=== PATIENT | female | born 1985 | race Caucasian/White ===

== ENCOUNTER → 2017-07-17 | Outpatient (CLI) | payer BC ==
[~2017-07-17] VITALS: Ht 178.3 cm; Wt 101.8 kg
[~2017-07-17] MED LIST: MIRENA52 MG IY; MULTIPLE VITAM1 EACH PO; PRENATAL TABLE1 EACH PO; TYLENOL EXTRA500 MG PO
[2017-07-17 17:15] VITALS: BP 120/58
== END | disposition home or self-care (01) ==
LOC: IVINF 16:55
DX: Z34.83 Encounter for supervision of other normal pregnancy, third trimester (principal); Z3A.28 28 weeks gestation of pregnancy; Z67.41 Type O blood, Rh negative
CPT/HCPCS: 96372; J2790

== ENCOUNTER 2017-10-02 09:03 | Inpatient (IN) | payer BC ==
[~2017-10-02] VITALS: Ht 180.3 cm; Wt 109.8 kg
[2017-10-02 09:33] VITALS: BP 107/72
[2017-10-02 11:07] LABS: AMPHETAMINE NEGATIVE (500 ng/mL); BARBITURATES NEGATIVE (200 ng/mL); BENZODIAZEPINES NEGATIVE (150 ng/mL); BUPRENORPHINE NEGATIVE (10 ng/mL); COCAINE NEGATIVE (150 ng/mL); METHADONE NEGATIVE (200 ng/mL); METHAMPHETAMINE NEGATIVE (500 ng/mL); OPIATES (MORPHINE) NEGATIVE (100 ng/mL); OXYCODONE NEGATIVE (100 ng/mL); PHENCYCLIDINE NEGATIVE (25 ng/mL); PROPOXYPHENE NEGATIVE (300 ng/mL); THC CANNABINOIDS NEGATIVE (50 ng/mL); TRICYCLIC ANTIDEPRESSANTS NEGATIVE (300 ng/mL)
[2017-10-02 13:35] VITALS: BP 127/71
[2017-10-02 14:30] VITALS: BP 125/74
[2017-10-02] MEDS ORDERED: LORCET 5-325 M1 EACH PO (15:09)
[2017-10-02] MEDS ORDERED: MOTRIN800 MG PO (15:09)
[2017-10-03 06:41] LABS: BASOPHIL (%) 0.3 % (0-1); EOSINOPHIL (%) 0.2 % (0-5); HEMATOCRIT 32.9 % (36.0-46.0); HEMOGLOBIN 10.9 G/DL (11.9-15.5); IMMATURE GRANULOCYTE (%) 0.8 % (0.0-0.7); LYMPHOCYTE (%) 13.4 % (15-42); LYMPHOCYTE COUNT 1.4 K/uL (1.0-2.8); MCHC 33.1 G/DL (30.0-36.0); MCV 87.5 FL (83-99); MONOCYTE (%) 7.1 % (3-12); MONOCYTE COUNT 0.8 K/uL (0-0.8); NEUTROPHIL (%) 78.2 % (45-76); NEUTROPHIL COUNT 8.4 K/uL (1.8-6.4); PLATELET COUNT 186 K/uL (156-360); RBC DIS.WIDTH-CV 13.5 % (11.8-14.6); RBC DIS.WIDTH-SD 42.7 % (39-53); RED BLOOD COUNT 3.76 M/uL (3.80-5.20); WHITE BLOOD COUNT 10.7 K/uL (4.1-10.2)
[2017-10-03 07:52] VITALS: BP 119/70
[2017-10-03 11:32] VITALS: BP 115/68
[2017-10-03 15:26] VITALS: BP 114/64
[2017-10-04 07:23] VITALS: BP 121/72
[2017-10-04] MEDS ORDERED: DOCUSATE SODIU100 MG PO (11:50)
[2017-10-04] MEDS ORDERED: IBUPROFEN800 MG PO (11:51)
== END 2017-10-04 15:20 | disposition home or self-care (01) | DRG 766 ==
LOC: 2SOUTH 09:03 → 2WEST 09:14 → 2SOUTH 09:40 → 2WEST 10-04 15:20
PROVIDERS: Obstetrics & Gynecology
DX: O34.211 Maternal care for low transverse scar from previous cesarean delivery (principal); O32.8XX0 Maternal care for other malpresentation of fetus, not applicable or unspecified; Z30.2 Encounter for sterilization; Z3A.39 39 weeks gestation of pregnancy; Z37.0 Single live birth; Z90.79 Acquired absence of other genital organ(s); Z90.721 Acquired absence of ovaries, unilateral
CPT/HCPCS: 85025; 86850; 86900; 86901; 88302; J0690; J1885; J2274; J2405; J7120; S0020